=== PATIENT | female | born 1930 | race American Indian/Alaskan Native ===

== ENCOUNTER 2019-01-23 12:51 | Day surgery (SDC) | payer OTHER ==
[~2019-01-23] VITALS: Ht 152.4 cm; Wt 57.2 kg
[2019-01-23] MEDS ORDERED: FLUOXETINE HCL60 MG PO (13:25)
[2019-01-23] MEDS ORDERED: SIMVASTATIN5 MG PO (13:26)
[2019-01-23] MEDS ORDERED: TIROSINT50 MCG PO (13:26)
[2019-01-23] MEDS ORDERED: ACID REDUCER20 M1 PO (13:26)
[2019-01-23] MEDS ORDERED: COZAAR100 MG PO (13:27)
[2019-01-23] MEDS ORDERED: EVISTA60 MG PO (13:28)
[2019-01-23] MEDS ORDERED: SINGULAIR10 MG PO (13:28)
--- NOTE | 2019-01-23 13:37 | NUR ---
SE RECIBE PTE FEMENINA, ALERTA Y ORIENTADA X3, LA CUAL REFIERE FRACTURA EN MANO R+ Y PRESENTAR DOLOR BOAZ Y ORDEN MEDICA PARA SER ADMITIDA REALIZAD POR EL DR. MADRIGAL.
[2019-01-24] MEDS ORDERED: ULTRACET PO (09:48)
[2019-01-24] MEDS ORDERED: CIPRO500 MG PO (09:48)
[2019-01-24] MEDS ORDERED: ALEVE220 M1 PO (09:48)
== END 2019-01-24 12:00 | disposition home or self-care (01) ==
LOC: ER 12:51 → CIR.AMB 15:00 → ER 15:05 → SURH 15:05 → SEC-K 15:05 → O/R 15:05 → EDSTATUS 16:00 → CIR.AMB 16:30 → SURH 17:11 → SEC-K 17:11 → CIR.AMB 01-24 08:00 → O/R 01-24 11:50 → SURH 01-24 11:50 → SEC-K 01-24 11:50 → CIR.AMB 01-24 12:00
DX: S52.571A Other intraarticular fracture of lower end of right radius, initial encounter for closed fracture (principal); M80.00XA Age-related osteoporosis with current pathological fracture, unspecified site, initial encounter for fracture; S52.611A Displaced fracture of right ulna styloid process, initial encounter for closed fracture
CPT/HCPCS: 25609; 20902; C1776